=== PATIENT | female | born 1980 | race Caucasian/White ===

== ENCOUNTER 2016-08-02 20:42 | Emergency (ER) | payer SELFPAY ==
[~2016-08-02] VITALS: Ht 154.9 cm; Wt 59.0 kg
--- NOTE | 2016-08-02 21:17 | NUR ---
Patient discharged to home in stable conditon. Written and verbal after care instructions given. Patient verbalizes understanding of instructions.
== END 2016-08-02 21:18 | disposition home or self-care (01) ==
LOC: ER 20:49
DX: H60.12 Cellulitis of left external ear (principal); F17.200 Nicotine dependence, unspecified, uncomplicated; I95.9 Hypotension, unspecified
CPT/HCPCS: A4663

== ENCOUNTER 2016-08-16 21:52 | Emergency (ER) | payer MEDICAID ==
[~2016-08-16] VITALS: Ht 154.9 cm; Wt 59.0 kg
[2016-08-16] MEDS: IV NORMAL SALINE 1000 ML BAG IV ONE (22:41)
[2016-08-16 22:50] LABS: BASOPHILS # (AUTO) 0.1 K/uL (0.0-8.0); BASOPHILS % (AUTO) 0.5 % (0.0-2.0); EOSINOPHILS # (AUTO) 0.5 K/uL (0.0-0.7); EOSINOPHILS % (AUTO) 3.7 % (0.0-7.0); HEMATOCRIT 39.3 % (37-47); HEMOGLOBIN 13.1 G/DL (12.0-16.0); LYMPHOCYTES # (AUTO) 3.1 K/UL (0.8-4.8); LYMPHOCYTES % (AUTO) 24.8 % (20.5-51.5); MEAN CORPUSCULAR HEMOGLOBIN 31.1 UUG (27.0-31.0); MEAN CORPUSCULAR HGB CONC 33 g/dL (32.0-37.0); MEAN CORPUSCULAR VOLUME 93.5 FL (81.0-99.0); MONOCYTES # (AUTO) 0.6 K/UL (0.1-1.30); MONOCYTES % (AUTO) 4.6 % (0.0-11.0); NEUTROPHILS # (AUTO) 8.3 K/UL (1.8-8.9); NEUTROPHILS % (AUTO) 66.4 % (38.5-71.5); PLATELET COUNT (AUTO) 194 K/UL (150-450); WHITE BLOOD COUNT (AUTO) 12.6 K/UL (4.0-11.2)
[2016-08-16] MEDS: OXYCODONE/APAP 5-325 MG TABLET PO ONE (22:50)
[2016-08-16] MEDS: ONDANSETRON 4 MG/2 ML VIAL IV ONE (22:50)
[2016-08-16 22:52] LABS: CREATININE 0.7 mg/dL (0.6-1.3); POTASSIUM 3.5 mmol/L (3.5-5.1)
[2016-08-16] MEDS ORDERED: OXYCODONE/APAP 5-325 MG TABLET ONE (22:54)
[2016-08-16] MEDS ORDERED: ONDANSETRON 4 MG/2 ML VIAL ONE (22:54)
[2016-08-16 22:58] LABS: BILIRUBIN,DIRECT 0.1 mg/dL (0.0-0.2); BILIRUBIN,TOTAL 0.2 mg/dL (0.2-1.0); TOTAL PROTEIN, SERUM 7.4 g/dL (6.4-8.2)
[2016-08-16 23:01] LABS: *BILIRUBIN,URIN NEGATIVE (NEGATIVE); *BLOOD, URINE NEGATIVE (NEGATIVE); *CLARITY,URINE CLEAR (CLEAR); *COLOR,URINE AMBER (YELLOW); *KETONES,URINE TRACE (NEGATIVE); *PROTEIN,URINE NEGATIVE (NEGATIVE); *UROBILINOGEN,URINE 0.2 E.U./dl (NORMAL); LEUKOCYTE ESTERASE ,URINE NEGATIVE (NEGATIVE); NITRITE, URINE NEGATIVE (NEGATIVE); PH,URINE 5.5 (5.0-8.0); UGLUCOSE NEGATIVE (NEGATIVE)
[2016-08-16 23:08] LABS: *URINE HCG, QUAL NEGATIVE (NEGATIVE); BACTERIA,URINE FEW /HPF (NONE SEEN); RBC,URINE 0-3 /HPF (0-3); SQUAMOUS EPITHELIAL CELL,UR MODERATE /HPF (NONE SEEN); WBC,URINE 0-3 /HPF (0-3)
[2016-08-16] MEDS ORDERED: IOHEXOL 300MG/ML 100 ML INFUS..BTL ONE (23:33)
[2016-08-16] MEDS ORDERED: NORMAL SALINE FLUSH 10 ML DISP.SYRIN ONE (23:33)
[2016-08-16] MEDS ORDERED: IV NORMAL SALINE 250 ML IV ONE (23:33)
--- NOTE | 2016-08-17 01:02 | NUR ---
Patient discharged to home in stable conditon. Written and verbal after care instructions given. Patient verbalizes understanding of instructions.
== END 2016-08-17 01:03 | disposition home or self-care (01) ==
LOC: ER 21:53
DX: R10.31 Right lower quadrant pain (principal); F17.210 Nicotine dependence, cigarettes, uncomplicated
CPT/HCPCS: 36415; 76856; 83690; 84703; 85025; 85730; A4663; J2405; J3490; J7030; J7050; Q9967

== ENCOUNTER 2017-04-05 15:18 | Emergency (ER) | payer MEDICAID, OTHER ==
[~2017-04-05] VITALS: Ht 154.9 cm; Wt 61.7 kg
[2017-04-05] MEDS ORDERED: IBUPROFEN 800 MG TABLET ONE (16:11)
[2017-04-05] MEDS ORDERED: IBUPROFEN 800 MG TABLET PO ONE (16:15)
--- NOTE | 2017-04-05 16:26 | NUR ---
Crutches dispensed. Pt instructed on proper use of crutches. Patient able to demonstrate correct use of crutches.
--- NOTE | 2017-04-05 16:34 | NUR ---
Patient discharged to home in stable conditon. Written and verbal after care instructions given to patient and significant other. Patient and significant other verbalized understanding of instructions.
== END 2017-04-05 16:35 | disposition home or self-care (01) ==
LOC: ER 15:19
DX: S92.202A Fracture of unspecified tarsal bone(s) of left foot, initial encounter for closed fracture (principal); F17.200 Nicotine dependence, unspecified, uncomplicated; W22.8XXA Striking against or struck by other objects, initial encounter; Y93.89 Activity, other specified; Y92.89 Other specified places as the place of occurrence of the external cause; Y99.8 Other external cause status
CPT/HCPCS: 73610; 73630; A4663

== ENCOUNTER 2018-04-21 01:17 | Emergency (ER) | payer MEDICAID, OTHER ==
[~2018-04-21] VITALS: Ht 121.9 cm; Wt 65.8 kg
--- NOTE | 2018-04-21 01:44 | NUR ---
Pt. ambulated into ED w11/26 abd. pain/N/V/D since 5AM yesterday morning, pt. denies any pertinent medical history, states last menstrual period began 3 weeks ago,
[2018-04-21] MEDS ORDERED: IV NORMAL SALINE 1000 ML BAG IV ONE (02:00)
[2018-04-21] MEDS ORDERED: PANTOPRAZOLE SODIUM 40 MG VIAL IV ONE (02:00)
[2018-04-21] MEDS ORDERED: ONDANSETRON 4 MG/2 ML VIAL IV ONE (02:00)
[2018-04-21] MEDS ORDERED: PANTOPRAZOLE SODIUM 40 MG VIAL ONE (02:01)
[2018-04-21] MEDS ORDERED: ONDANSETRON 4 MG/2 ML VIAL ONE (02:01)
[2018-04-21 02:09] LABS: BASOPHILS % (AUTO) 0.1 % (0.0-2.0); EOSINOPHILS # (AUTO) 0.1 K/uL (0.0-0.7); EOSINOPHILS % (AUTO) 0.7 % (0.0-7.0); HEMOGLOBIN 12.7 g/dL (10.9-14.3); LYMPHOCYTES # (AUTO) 0.4 K/uL (20.0-40.0); MEAN CORPUSCULAR HEMOGLOBIN 31.4 uug (24.7-32.8); MEAN CORPUSCULAR HGB CONC 33 g/dL (32.3-35.6); MEAN CORPUSCULAR VOLUME 93.9 fL (75.5-95.3); MONOCYTES # (AUTO) 0.3 K/uL (2.0-10.0); MONOCYTES % (AUTO) 3.8 % (0.0-11.0); NEUTROPHILS # (AUTO) 7.6 K/uL (1.8-8.9); NEUTROPHILS % (AUTO) 90.4 % (38.5-71.5); PLATELET COUNT (AUTO) 142 K/uL (179-408); RED BLOOD CELL COUNT(AUTO) 4.04 MIL/uL (3.63-4.92); WHITE BLOOD COUNT (AUTO) 8.4 K/uL (3.8-11.8)
--- NOTE | 2018-04-21 02:14 | NUR ---
Mother at bedside, pt. given blankets for comfort, IV patent and infusing - no s/s infiltration/phlebitis,
[2018-04-21 02:25] LABS: ALANINE AMINOTRANSFERASE 18 U/L (14-59); ALKALINE PHOSPHATASE 59 U/L (50-136); ASPARTATE AMINOTRANSFERASE 14 U/L (15-37); BILIRUBIN,DIRECT 0.1 mg/dL (0.0-0.2); BILIRUBIN,TOTAL 0.6 mg/dL (0.2-1.0); CARBON DIOXIDE 21 mmol/L (21-32); CHLORIDE 102 mmol/L (98-107); CREATININE 0.6 mg/dL (0.6-1.3); GLUCOSE 120 mg/dL (74-106); LIPASE 74 U/L (73-393); POTASSIUM 3.4 mmol/L (3.5-5.1); TOTAL PROTEIN, SERUM 6.6 g/dL (6.4-8.2); UREA NITROGEN, BLOOD 9 mg/dL (7-18)
[2018-04-21] MEDS ORDERED: ACETAMINOPHEN ES 500 MG TABLET PO ONE (02:30)
[2018-04-21] MEDS ORDERED: ACETAMINOPHEN ES 500 MG TABLET ONE (02:32)
[2018-04-21 02:46] LABS: *BILIRUBIN,URIN NEGATIVE (NEGATIVE); *BLOOD, URINE Trace-lysed (NEGATIVE); *CLARITY,URINE CLEAR (CLEAR); *COLOR,URINE YELLOW (YELLOW); *KETONES,URINE 1+ (NEGATIVE); *UROBILINOGEN,URINE 0.2 E.U./dl (NORMAL); LEUKOCYTE ESTERASE ,URINE NEGATIVE (NEGATIVE); NITRITE, URINE NEGATIVE (NEGATIVE); PH,URINE 5.5 (5.0-8.0); UGLUCOSE NEGATIVE (NEGATIVE)
[2018-04-21] MEDS ORDERED: ONDANSETRON ODT 4 MG TAB.RAPDIS ONE (03:02)
[2018-04-21] MEDS ORDERED: ONDANSETRON ODT 4 MG TAB.RAPDIS SL ONE (03:15)
[2018-04-21 03:18] LABS: BACTERIA,URINE FEW /HPF (NONE SEEN); MUCUS,URINE MANY /LPF (0-FEW); RBC,URINE 0-3 /HPF (0-3); SQUAMOUS EPITHELIAL CELL,UR FEW /HPF (NONE SEEN); TRANSITIONAL EPI CELLS,URINE FEW /LPF (NONE SEEN); WBC,URINE 0-3 /HPF (0-3)
--- NOTE | 2018-04-21 03:31 | NUR ---
Patient discharged to home in stable conditon. Written and verbal after care instructions given. Patient verbalizes understanding of instructions. Pt. d/c w/ prescriptions per MD order, d/c papers signed, all belongings w/ pt., ID/IV removed, ambulated off unit w/ steady gait, left in private vehicle accompanied by mother, NAD
== END 2018-04-21 03:33 | disposition home or self-care (01) ==
LOC: ER 01:19
DX: A08.4 Viral intestinal infection, unspecified (principal); F17.200 Nicotine dependence, unspecified, uncomplicated
CPT/HCPCS: 36415; 80048; 80076; 81001; 83690; 84702; 85025; 96374; 96375; 99283; C9113; J2405; A4663; A9150; J7030; Q0162

== ENCOUNTER 2018-11-23 19:41 | Inpatient (IN) | payer MEDICAID ==
[~2018-11-23] VITALS: Ht 154.9 cm; Wt 60.9 kg
--- NOTE | 2018-11-23 19:50 | NUR ---
Patient ambulated with stable gait. Speech rapid, speaks in complete sentences. No neuro deficits noted. Patient came for c/o cp, sob, tingling radiating down her upper extremity to her digits. Denies any n/v/d. Patient in bed at lowest position, sr upx2, call light within reach. Fall precautions implemented per protocol. Friend at bedside accompanying patient.
[2018-11-23 20:07] LABS: BASOPHILS # (AUTO) 0.1 K/uL (0.0-8.0); BASOPHILS % (AUTO) 0.9 % (0.0-2.0); EOSINOPHILS # (AUTO) 0.2 K/uL (0.0-0.7); HEMATOCRIT 43.2 % (31.2-41.9); HEMOGLOBIN 14.2 g/dL (10.9-14.3); LYMPHOCYTES % (AUTO) 26.8 % (20.5-51.5); MEAN CORPUSCULAR HEMOGLOBIN 31.5 uug (24.7-32.8); MEAN CORPUSCULAR HGB CONC 33 g/dL (32.3-35.6); MEAN CORPUSCULAR VOLUME 95.6 fL (75.5-95.3); MONOCYTES # (AUTO) 0.6 K/uL (2.0-10.0); MONOCYTES % (AUTO) 5.2 % (0.0-11.0); NEUTROPHILS # (AUTO) 7.4 K/uL (1.8-8.9); NEUTROPHILS % (AUTO) 65.1 % (38.5-71.5); PLATELET COUNT (AUTO) 233 K/uL (179-408); RED BLOOD CELL COUNT(AUTO) 4.52 MIL/uL (3.63-4.92); WHITE BLOOD COUNT (AUTO) 11.3 K/uL (3.8-11.8)
[2018-11-23] MEDS ORDERED: ASPIRIN 325 MG TABLET ONE (20:08)
[2018-11-23 20:14] LABS: CREATININE 0.8 mg/dL (0.6-1.3); POTASSIUM 3.6 mmol/L (3.5-5.1)
[2018-11-23] MEDS ORDERED: NITROGLYCERIN 0.4 MG/TAB BOTTLE SL ONE ×2 (20:15→20:18)
[2018-11-23] MEDS ORDERED: ASPIRIN 325 MG TABLET PO ONE (20:15)
[2018-11-23 20:20] LABS: BILIRUBIN,DIRECT 0.1 mg/dL (0.0-0.2); BILIRUBIN,TOTAL 0.2 mg/dL (0.2-1.0); TOTAL PROTEIN, SERUM 7.8 g/dL (6.4-8.2)
--- NOTE | 2018-11-23 20:21 | NUR ---
Patient's Blood pressure = 107/73, HR 69. ERMD made aware cancelled order of nitroquick.
[2018-11-23] MEDS ORDERED: LORAZEPAM 2 MG/1 ML VIAL ONE ×2 (20:23→22:46)
--- NOTE | 2018-11-23 20:26 | NUR ---
Female equipment coordinator, REBEKAH Duncan, accompanied female patient for left breast exam for Dr. Francois.
[2018-11-23] MEDS ORDERED: LORAZEPAM 2 MG/1 ML VIAL IV ONE ×2 (20:30→22:45)
--- NOTE | 2018-11-23 20:46 | NUR ---
Patient resting in bed, NAD, VSS
--- NOTE | 2018-11-23 21:10 | NUR ---
ERMD stated that patient is okay to eat. Food provided by friend.
--- NOTE | 2018-11-23 22:44 | NUR ---
Dr Francois into eval patient. Had an episode of cp. EKG done as ordered.
[2018-11-23] MEDS ORDERED: MORPHINE SULFATE 2 MG/1 ML DISP.SYRIN IV ONE (22:45)
[2018-11-23] MEDS ORDERED: IV NS 1000 ML 1,000 ML IV ONE (22:45)
[2018-11-23] MEDS ORDERED: MORPHINE SULFATE 2 MG/1 ML DISP.SYRIN ONE (22:48)
--- NOTE | 2018-11-24 02:10 | NUR ---
Awaiting call back from Cyndi
[2018-11-24] MEDS ORDERED: Z GUARD REMEDY PASTE 57 GM TUBE TOP PRN (02:15)
[2018-11-24] MEDS ORDERED: ACETAMINOPHEN 325 MG TABLET PO PRN (02:15)
[2018-11-24] MEDS ORDERED: ONDANSETRON 4 MG/2 ML VIAL IV PRN (02:15)
[2018-11-24] MEDS ORDERED: HYDROCODONE/APAP 5-325MG TABLET PO PRN ×2 (02:15→07:45)
[2018-11-24] MEDS ORDERED: MORPHINE SULFATE 2 MG/1 ML DISP.SYRIN IV PRN ×2 (02:15→07:45)
[2018-11-24] MEDS ORDERED: MAGNESIUM HYDROXIDE 30 ML LIQUID UDC PO PRN (02:15)
--- NOTE | 2018-11-24 02:24 | NUR ---
Report given to REBEKAH Mantilla
--- NOTE | 2018-11-24 02:50 | NUR ---
RECEIVED PT FROM ER VIA [facility]. UNDER THE CARE OF DR. RUSSELL DX: CHEST PAIN. PT SHOWS NO SIGNS OF ACUTE DISTRESS. IV INTACT. BELONGING LIST DONE. FPC ASSESSMENT DONE. ADMISSION PROCESS AND CARE PLAN INITIATED. SAFETY AND COMFORT PROVIDED. WILL CONTINUE TO MONITOR.
--- NOTE | 2018-11-24 02:53 | NUR ---
Patient transported to TELE in stable condition.
[2018-11-24 04:00] VITALS: BP 95/43
--- NOTE | 2018-11-24 06:28 | NUR ---
PT SLEPT THROUGHOUT THE SHIFT. PT SHOWS NO ACUTE DISTRESS. NO PRN MEDICATIONS GIVEN. PT VITAL SIGNS WITHIN NORMAL LIMIT. PT ON SINUS RHYTHM . SAFETY AND COMFORT PROVIDED. WILL ENDORSE TO INCOMING NURSE FOR CONTINUITY OF CARE.
[2018-11-24 06:38] LABS: BASOPHILS # (AUTO) 0.1 K/uL (0.0-8.0); BASOPHILS % (AUTO) 0.6 % (0.0-2.0); EOSINOPHILS # (AUTO) 0.5 K/uL (0.0-0.7); EOSINOPHILS % (AUTO) 5.9 % (0.0-7.0); HEMATOCRIT 36.1 % (31.2-41.9); HEMOGLOBIN 12.1 g/dL (10.9-14.3); LYMPHOCYTES # (AUTO) 2.5 K/uL (20.0-40.0); LYMPHOCYTES % (AUTO) 26.6 % (20.5-51.5); MEAN CORPUSCULAR HEMOGLOBIN 31.7 uug (24.7-32.8); MEAN CORPUSCULAR HGB CONC 34 g/dL (32.3-35.6); MEAN CORPUSCULAR VOLUME 94.6 fL (75.5-95.3); MONOCYTES # (AUTO) 0.5 K/uL (2.0-10.0); MONOCYTES % (AUTO) 5.9 % (0.0-11.0); NEUTROPHILS # (AUTO) 5.6 K/uL (1.8-8.9); PLATELET COUNT (AUTO) 168 K/uL (179-408); RED BLOOD CELL COUNT(AUTO) 3.81 MIL/uL (3.63-4.92); WHITE BLOOD COUNT (AUTO) 9.3 K/uL (3.8-11.8)
[2018-11-24 06:52] LABS: CREATININE 0.6 mg/dL (0.6-1.3)
[2018-11-24 06:55] LABS: THYROID STIMULATING HORMONE 1.141 mIU/mL (0.358-3.740)
--- NOTE | 2018-11-24 07:27 | NUR ---
RECEIVED PATIENT IN BED WITH EYES CLOSED EASILY AROUSABLE ON ROUNDS DENIES CHEST PAIN NO RESP DISTRESS AT THIS TIME CALL LIGHTS AND PERSONAL BELONGINGS ARE WITHIN EASY REACH AT THIS TIME MADE COMFORTABLE AND WILL CONTINUE TO OBSERVE.
--- NOTE | 2018-11-24 08:15 | NUR ---
PATIENT IS AWAKE ALERT AND ORIENTED REFUSED TO HAVE HER BLOOD DRAW FOR TROPONIN AT THIS TIME DESPITE EXPLAINATION THAT HER DOCTOR ORDERED THIS TO ENSURE THAT HER TROP LEVELS WERE OKAY.REFUSED TO EAT BREAKFAST STATED THAT SHE WAS NOT HUNGRY AT THIS TIME BUT DID EAT HER BANANA DRANK HER COFFEE AND JUICE REMINDED HER THAT IF SHE WANTED ANYTHING ELSE TO LET ME KNOW AND I CAN ATTEMPT TO GET IT FOR HER FROM THE KITCHEN AND SHE EXPRESSED UNDERSTANDING.
[2018-11-24 11:15] VITALS: BP 100/49
--- NOTE | 2018-11-24 15:57 | NUR ---
PATIENT COMPLAINED OF FEELING DIZZY VITALS CHECKED BLOOD PRESSURE WAS 92/47 SAT WAS [address] TURNER NOTIFIED O2 STARTED AT 2L/M DR YEH HERE AND SEEN PATIENT WITH ORDERS AWAITING FOR ECHO ORDERED
[2018-11-24 16:10] VITALS: BP 100/60
--- NOTE | 2018-11-24 17:45 | NUR ---
ECHO DONE ORDERED AND DR CANO READ THE ECHO AND SEEN PATIENT AGAIN AND STATED THAT PATIENT CAN BE DISCHARGED HOME PATIENT AWARE AND STATED DAX HER FRIEND ETHAN WILL BE HERE TO DRIVE HER HOME.
--- NOTE | 2018-11-24 18:10 | NUR ---
PATIENT DISCHARGED PICKED UP BY HER FRIEND ETHAN IN SATISFACTORY CONDITION STATED FEELS BETTER DENIES FEELING DIZZY DENIES CHEST PAIN INSTRUCTED TO CALL HER PRIMARY DOCTOR FOR A FOLLOW UP APPOINTMENT WITHIN THE NEXT ONE WEEK AND SHE EXPRESSED UNDERSTANDING PATIENT HAS NO ACTIVE OR NEW MEDICATIONS ASSISTED VIA W/CHAIR WITH ALL OF HER PERSONAL BELONGINGS.
== END 2018-11-24 18:10 | disposition home or self-care (01) | DRG 145 ==
LOC: ER 19:41 → TELE3 11-24 02:32
PROVIDERS: ADMIT Nurse Practitioner Acute Care; ATTEND Internal Medicine
DX: J20.8 Acute bronchitis due to other specified organisms (principal); D69.6 Thrombocytopenia, unspecified; F17.210 Nicotine dependence, cigarettes, uncomplicated; R94.31 Abnormal electrocardiogram [ECG] [EKG]; Z83.3 Family history of diabetes mellitus; N64.4 Mastodynia; F41.9 Anxiety disorder, unspecified; R73.9 Hyperglycemia, unspecified; R55 Syncope and collapse; E86.0 Dehydration; Z82.49 Family history of ischemic heart disease and other diseases of the circulatory system; Z98.82 Breast implant status
CPT/HCPCS: 36415; 70030-TC; 71045; 84443; 85025; 93005; A4663; G0378; J2060; J2270; J7030

== ENCOUNTER 2022-11-08 23:01 | Emergency (ER) | payer OTHER ==
[~2022-11-08] VITALS: Ht 154.9 cm; Wt 64.4 kg
[2022-11-08 23:41] LABS: *URINE HCG, QUAL NEGATIVE (NEGATIVE)
[2022-11-08 23:51] LABS: BASOPHILS # (AUTO) 0.1 K/UL (0.0-0.2); BASOPHILS % (AUTO) 0.9 % (0.0-2.0); EOSINOPHILS # (AUTO) 0.3 K/uL (0.0-0.7); EOSINOPHILS % (AUTO) 3.9 % (0.0-7.0); HEMATOCRIT 36.3 % (31.2-41.9); HEMOGLOBIN 12.6 g/dL (10.9-14.3); LYMPHOCYTES # (AUTO) 2.2 K/uL (0.8-4.8); LYMPHOCYTES % (AUTO) 27.2 % (20.5-51.5); MEAN CORPUSCULAR HEMOGLOBIN 32.6 uug (24.7-32.8); MEAN CORPUSCULAR HGB CONC 35 g/dL (32.3-35.6); MEAN CORPUSCULAR VOLUME 93.9 fL (75.5-95.3); MONOCYTES # (AUTO) 0.5 K/uL (0.1-1.30); MONOCYTES % (AUTO) 6.4 % (0.0-11.0); NEUTROPHILS % (AUTO) 61.6 % (38.5-71.5); PLATELET COUNT (AUTO) 199 K/uL (179-408); RED BLOOD CELL COUNT(AUTO) 3.87 MIL/uL (3.63-4.92); RED CELL DISTRIBUTION WIDTH 12.7 % (12.3-17.7)
[2022-11-09 00:07] LABS: CALCIUM 9.1 mg/dL (8.5-10.1); CARBON DIOXIDE 29 mmol/L (21-32); CHLORIDE 104 mmol/L (98-107); CREATININE 0.8 mg/dL (0.6-1.3); GLUCOSE 91 mg/dL (74-106); POTASSIUM 3.9 mmol/L (3.5-5.1); SODIUM SERUM 140 mmol/L (136-145); UREA NITROGEN, BLOOD 14 mg/dL (7-18)
[2022-11-09] MEDS ORDERED: MECL-159 PO (00:35)
[2022-11-09] MEDS ORDERED: NAPR-1164 PO (00:35)
[2022-11-09 00:47] VITALS: BP 142/75; O2SAT 99
== END 2022-11-09 00:48 | disposition home or self-care (01) ==
LOC: ER 23:01
DX: R42 Dizziness and giddiness (principal); R51.9 Headache, unspecified; F17.210 Nicotine dependence, cigarettes, uncomplicated; Z91.013 Allergy to seafood; Z79.899 Other long term (current) drug therapy
CPT/HCPCS: 36415; 84484; 84703; 85025; 93005; A4663